=== PATIENT | male | born 1995 | race Two or more races ===

== ENCOUNTER 2019-06-04 21:30 | Emergency (ER) | payer OTHER ==
--- NOTE | 2019-06-04 23:03 | ER Document Report ---
ED Medical Screen (RME) - General Stated Complaint: LEFT THIGH LUMP Time Seen by Provider: 06/04/19 22:59 Mode of Arrival: Ambulatory Information source: Patient Notes: Patient presents complaining of redness and swelling to the left thigh for the past 4 days. Patient denies any drainage from lesion. Patient states he has had some the like this before although no history of MRSA. Patient denies any fever. I have greeted and performed a rapid initial assessment of this patient. A comprehensive ED assessment and evaluation of the patient, analysis of test results and completion of the medical decision making process will be conducted by additional ED providers. TRAVEL OUTSIDE OF THE [place] IN LAST 30 DAYS: No - Related Data Allergies/Adverse Reactions: No Known Allergies Allergy (Verified 06/04/19 22:57) Past Medical History - Social History Chew tobacco use (# tins/day): No Frequency of alcohol use: None Drug Abuse: None Physical Exam - Vital signs Vitals: Temp Pulse Resp BP Pulse Ox 98.1 F 92 16 141/83 H 99 06/04/19 22:02 06/04/19 22:02 06/04/19 22:02 06/04/19 22:02 06/04/19 22:02 - General General appearance: Appears well, Alert Notes: Erythematous, tender indurated lesion to the lateral aspect of left thigh worrisome for abscess Course - Vital Signs Vital signs: Temp Pulse Resp BP Pulse Ox 98.1 F 92 16 141/83 H 99 06/04/19 22:57 06/04/19 22:57 06/04/19 22:57 06/04/19 22:57 06/04/19 22:57
[2019-06-05] MEDS ORDERED: HYDROCODONE/ACETAMINOPHEN 5-325 MG TABLET PO ONE (02:34)
[2019-06-05] MEDS ORDERED: HYDROCODONE/ACETAMINOPHEN 5-325 MG (6 TAB/ER DISP) PO PRN (02:34)
--- NOTE | 2019-06-05 02:35 | ER Document Report ---
HPI - HPI Time Seen by Provider: 06/04/19 22:59 Pain Level: 4 Context: Patient is a 23-year-old male who presents to the emergency department with a chief complaint of erythema and pain to his left anterior lateral thigh. Patient has history of abscesses in the past. Denies any fever, body aches, chills. States that he does have a little bit of numbness to the area. - ROS Systems Reviewed and Negative: Yes All other systems reviewed and negative - CONSTITUTIONAL Constitutional: DENIES: Fever, Chills - REPRODUCTIVE Reproductive: DENIES: : - MUSCULOSKELETAL Musculoskeletal: REPORTS: Extremity pain - Left lateral thigh - DERM Skin Color: Erythema - left lateral thigh Skin Problems: Rash - left thigh, Pustule - left thigh Past Medical History - General Information source: Patient - Social History Smoking Status: Current Some Day Smoker Chew tobacco use (# tins/day): No Frequency of alcohol use: None Drug Abuse: None Family History: Reviewed & Not Pertinent Patient has suicidal ideation: No Patient has homicidal ideation: No Vertical Provider Document - CONSTITUTIONAL Agree With Documented VS: Yes Exam Limitations: No Limitations General Appearance: No Apparent Distress - INFECTION CONTROL TRAVEL OUTSIDE OF THE [place] IN LAST 30 DAYS: No - HEENT HEENT: Atraumatic, Normocephalic, PERRLA - NECK Neck: Normal Inspection - RESPIRATORY Respiratory: No Respiratory Distress - CARDIOVASCULAR Cardiovascular: Regular Rate Pulses: Normal: Radial - MUSCULOSKELETAL/EXTREMETIES Musculoskeletal/Extremeties: FROM, Tender - Left lateral thigh - NEURO Level of Consciousness: Awake, Alert, Appropriate Motor/Sensory: No Motor Deficit, No Sensory Deficit - DERM Integumentary: Warm, Rash - Consistent with cellulitis to left lateral thigh, Abscess - Left lateral thigh Course - Re-evaluation Re-evalutation: 06/05/19 04:15 Differential diagnosis includes but normal limited to: abscess, dermoid cyst, sebaceous cyst, furnucle, or others. Based on patient's physical exam and history, this is an abscess. It was drained in the ER. There is surrounding cellulitis. I do not believe the patient has underlying necrotizing fasciitis. Patient has risk factors for MRSA, as he is prior . Based on patient's physical exam and these factors, they will be treated with antibiotics. He will be started on Bactrim and Keflex. [facility] to [facility] his [facility] and his wound evaluated. He is in agreement with this plan. Follow-up precautions were given. Verbal discharge instructions were given to the patient. They verbalized understanding. They are stable for discharge. - Vital Signs Vital signs: Temp Pulse Resp BP Pulse Ox 98.1 F 92 16 141/83 H 99 06/04/19 22:57 06/04/19 22:57 06/04/19 22:57 06/04/19 22:57 06/04/19 22:57 Procedures - Incision and Drainage Left Lateral Thigh Type: Simple Anesthetic type: 1% Lidocaine w/epi mL's of anesthetic: 10 Blade size: 11 I&D procedure: Betadine prep applied, Shurclens applied Incision Method: Incision made by scalpel Amount/type of drainage: 5 ml; purulent/blood Adult Front & Back picture: 1 - abcess noted Discharge - Discharge Clinical Impression: Abscess Cellulitis Qualifiers: Site of cellulitis: extremity Site of cellulitis of extremity: lower extremity Laterality: left Qualified Code(s): L03.116 - Cellulitis of left lower limb Condition: Stable Disposition: HOME, SELF-CARE Instructions: Abscess ([facility]), Cephalexin ([facility]), Post Incision and Drainage, Trimethoprim-Sulfa ([facility]) Additional Instructions: You were seen for an abscess that required drainage. Packing was placed to the area. Follow-up with your primary care provider or the emergency department in 24 to 48 hours. Please return if you develop fever, vomiting, the pain at the site worsens, you notice spreading redness from the area, or you have any other symptoms that are concerning to you. The rash is likely due to infection of your skin. You need to take the antibiotics as prescribed. Do not stop even if the rash goes away until you h ave completed all the antibiotics. You should also return if you develop fevers with temperature greater than 101, persistent vomiting, worsening pain, or have any other symptoms that are concerning to you. You can take ibuprofen 600 mg and acetaminophen 1000 mg every 6 hours as needed for your pain. You are being at home with [employer], if you take this, only take 650 mg of acetaminophen. Please only take the [place] as needed for extreme pain. Prescriptions: Sulfamethoxazole/Trimethoprim [Bactrim Ds Tablet] 1 each PO BID 7 Days #14 tablet Cephalexin Monohydrate [Keflex 500 mg Capsule] 500 mg PO Q6H 7 Days capsule Forms: Return to Work Referrals: [facility] - Follow up tomorrow
[2019-06-05] MEDS ORDERED: LIDOCAINE 1%/EPINEPHRINE INJ 20 ML VIAL ONE (04:00)
[2019-06-05] MEDS ORDERED: LIDOCAINE 1%/EPINEPHRINE INJ 20 ML VIAL INJ ONE (04:04)
[2019-06-05] MEDS ORDERED: SULFAMETHOXAZOLE/TRIMETHOPRIM 800-160 MG TABLET PO ONE (04:29)
[2019-06-05] MEDS ORDERED: CEPHALEXIN 500 MG CAPSULE PO ONE (04:29)
[2019-06-05 04:41] VITALS: BP 136/72
== END 2019-06-05 04:43 | disposition home or self-care (01) ==
LOC: ER 21:30
DX: L03.116 Cellulitis of left lower limb (principal); L53.9 Erythematous condition, unspecified; M79.652 Pain in left thigh; F17.200 Nicotine dependence, unspecified, uncomplicated
CPT/HCPCS: 10060; 99283; A6266; J3490